=== PATIENT | female | born 1950 | race Caucasian/White ===

== ENCOUNTER → 2017-09-28 | Outpatient (REF) ==
[~2017-09-28] MED LIST: ASPI325T6 PO; CELEBREX 200MG200 MG PO; DIOVAN 160MG160 MG PO; ESTRACE0.5 MG PO; FERROUS SU325 MG/TAB PO; FOLIC ACID0.4 MG PO; GLUCOPHAGE1000 MG PO; LASIX 20MG TABL20 MG PO; LIPITOR20 MG PO; NIRAVAM0.25 MG PO; NORCO 325 MG-7.1 TAB PO; PRILOSEC 20MG20 MG PO; VITAMIN C500 MG PO; VITAMIN D 1001000 IU PO; WELLBUTRIN 100100 MG PO; multivitamin capsule
== END ==
LOC: ZMSC 08:41
DX: Z01.89 Encounter for other specified special examinations (principal)